=== PATIENT | male | born 2000 | race Caucasian/White ===

== ENCOUNTER 2019-04-08 16:37 | Emergency (ER) | payer OTHER ==
[~2019-04-08] VITALS: Ht 177.8 cm; Wt 54.5 kg
[~2019-04-08 16:37] MED LIST: CELEXA 20MG20 MG/TAB PO
[2019-04-08 16:42] VITALS: BP 138/85; TEMP 98.2
[2019-04-08 17:25] LABS: COLLECTION METHOD CLEAN CATCH
[2019-04-08 17:34] LABS: PH 6 (5-8); SQUAMOUS EPITHELIAL None Seen /hpf; URINE APPEARANCE Clear; URINE BACTERIA None Seen /hpf; URINE BILIRUBIN Negative (NEGATIVE); URINE BLOOD Negative (NEGATIVE); URINE COLOR Straw; URINE GLUCOSE Negative (NEGATIVE); URINE KETONE Negative (NEGATIVE); URINE LEUKOCYTE ESTERASE Negative (NEGATIVE); URINE NITRATE Negative (NEGATIVE); URINE PROTEIN(semi-quant) Negative (NEGATIVE); URINE RBC 0-2 /hpf; URINE UROBILINOGEN Negative (NEGATIVE)
[2019-04-08 18:13] LABS: BASO % 0.8 % (0.0-2.0); EOS # 0.1 (0.0-0.7); EOS % 1.4 % (0-4.0); GRAN # 2.8 (1.4-6.5); GRAN % 55.9 % (42.2-75.2); HEMATOCRIT 42.1 % (36.0-47.0); HEMOGLOBIN 14.9 g/dl (12.5-16.1); LYMPH # 1.7 (1.2-3.4); LYMPH % 34.7 % (20.0-51.0); MEAN CELL VOLUME 88 fl (80.0-95.0); MEAN CORPUSCULAR HEMOGLOBIN 31 pg (26.0-32.0); MEAN CORPUSCULAR HGB CONC 35 g/dl (33.0-37.0); MEAN PLATELET VOLUME 9.6 fl (7.4-10.4); MONO # 0.4 (0.1-0.6); PLATELET COUNT 180 K/mm3 (130-400); REDCELL DISTRIBUTION WIDTH-CV 12.2 % (11.5-14.5)
[2019-04-08 18:28] LABS: ALBUMIN 4.8 gm/dL (3.5-5.0); BILIRUBIN,TOTAL 0.7 mg/dL (0.0-1.0); CALCIUM 9.9 mg/dL (8.4-10.2); CREATININE, serum 0.85 (0.66-1.25); POTASSIUM 4.5 mmol/L (3.4-5.0); TOTAL PROTEIN 8.3 gm/dL (6.4-8.2)
[2019-04-08 19:18] VITALS: PULSE 82
== END 2019-04-08 19:18 | disposition home or self-care (01) ==
LOC: COL.ER 16:37
PROVIDERS: Emergency Medicine
DX: N28.1 Cyst of kidney, acquired (principal); F17.210 Nicotine dependence, cigarettes, uncomplicated
CPT/HCPCS: J7030; Q9967

== ENCOUNTER 2019-06-11 02:32 | Emergency (ER) | payer OTHER ==
[~2019-06-11] VITALS: Ht 177.8 cm; Wt 51.8 kg
[2019-06-11 02:40] VITALS: BP 117/87; TEMP 98.7
[2019-06-11] MEDS ORDERED: BENTYL 20MG20 MG/TAB PO (03:26)
[2019-06-11] MEDS ORDERED: CELEXA 20MG20 MG/TAB PO (03:35)
[2019-06-11] MEDS ORDERED: ATIVAN 0.50.5 MG/TAB PO (03:36)
[2019-06-11 04:09] VITALS: PULSE 82
== END 2019-06-11 04:09 | disposition home or self-care (01) ==
LOC: COL.ER 02:32
DX: F41.9 Anxiety disorder, unspecified (principal); R07.89 Other chest pain; G25.2 Other specified forms of tremor; F32.9 Major depressive disorder, single episode, unspecified; K58.9 Irritable bowel syndrome, unspecified